=== PATIENT | female | born 1960 | race Caucasian/White ===

== ENCOUNTER 2021-11-05 00:03 | Observation (INO) | payer BC, SELFPAY ==
[2021-11-05 01:37] VITALS: BMI 21.0
[2021-11-05] MEDS ORDERED: Senokot S 8.6-50 MG TAB PO PRN (02:57)
[2021-11-05] MEDS ORDERED: Ondansetron PF 4 MG/2 ML Vial IVP PRN (02:57)
[2021-11-05] MEDS ORDERED: Acetaminophen 325 MG TAB PO PRN (02:57)
[2021-11-05] MEDS ORDERED: Bisacodyl 5 MG TAB PO PRN (02:57)
[2021-11-05] MEDS ORDERED: Sodium Chloride 0.9% 1,000 ML IV SCH (03:00)
[2021-11-05] MEDS ORDERED: Enoxaparin Sodium 40 MG/0.4 ML SYRINGE SC SCH (03:00)
[2021-11-05] MEDS ORDERED: Aspirin Chewable 81 MG TAB PO SCH (03:12)
[2021-11-05] MEDS ORDERED: Nitroglycerin 0.4 MG TAB (25 Tab Bottle) SL PRN (03:13)
[2021-11-05] MEDS ORDERED: Ibuprofen 800 MG TAB PO PRN (03:25)
[2021-11-05] MEDS ORDERED: Lidocaine 2% Viscous Solution 20 ML, Aluminum & Magnesium Hydroxide 30 ML, Donnatal Eli... SSW SCH (03:30)
[2021-11-05 04:35] LABS: #Basophils 0.1 thou/uL (0.0-0.2); #Eosinphils 0.2 thou/uL (0.0-0.7); #Lymphocytes 1.8 thou/uL (1.20-3.40); #Monocytes 0.4 thou/uL (0.11-0.59); #Neutrophils 4.9 thou/uL (1.40-6.50); %Eosinophils 3.1 % (0.0-10.0); %Lymphocytes 24.2 % (21.0-51.0); %Monocytes 5.9 % (0.0-10.0); %Neutrophils 65.9 % (42.0-75.0); Mean Corpuscular HGB CONC 32.8 g/dL (32.0-36.0); Mean Corpuscular Hemoglobin 30.9 pg (27.0-31.0); Mean Corpuscular Volume 94.3 fL (78.0-98.0); Mean Platelet Volume 8.5 fL (7.4-10.4); Platelet Count 265 thou/uL (130-400); RBC Distribution Width 11.5 % (11.5-14.5); Red Blood Cell (RBC) Count 3.87 mill/uL (4.20-5.40); White Blood Cell (WBC) Count 7.5 thou/uL (4.8-10.8)
[2021-11-05 05:00] LABS: Troponin I Less than 0.010 ng/mL (< 0.028)
[2021-11-05 06:29] LABS: ALT (SGPT) 42 U/L (8-55); AST (SGOT) 30 U/L (5-34); Albumin 4.7 g/dL (3.4-4.8); Alkaline Phosphatase 74 U/L (40-110); Anion Gap 15 mmol/L (10-20); BUN (Urea Nitrogen) 10 mg/dL (9.8-20.1); Bilirubin, Total 0.8 mg/dL (0.2-1.2); Calc. Creatinine Clearance 61 mL/min (70-130); Calcium 9.6 mg/dL (7.8-10.44); Carbon Dioxide 25 mmol/L (23-31); Chloride 104 mmol/L (98-107); Globulin 2.6 g/dL (2.4-3.5); Glucose 117 mg/dL (80-115); Potassium 3.3 mmol/L (3.5-5.1); Protein, Total 7.3 g/dL (5.8-8.1); Sodium 141 mmol/L (136-145)
[2021-11-05 06:37] LABS: Troponin I Less than 0.010 ng/mL (< 0.028)
[2021-11-05 11:45] LABS: SARS-CoV-2 PCR by NAA Not Detected (NotDetected)
[2021-11-05 15:32] VITALS: BP 139/75; TEMP 98.5
[2021-11-05] MEDS ORDERED: Potassium Chloride 20 MEQ TAB PO SCH (16:15)
[2021-11-06] MEDS ORDERED: Enoxaparin Sodium 40 MG/0.4 ML SYRINGE SC SCH (09:00)
== END 2021-11-05 18:28 | disposition home or self-care (01) ==
LOC: 2SW 01:33
PROVIDERS: ADMIT Internal Medicine; ATTEND Internal Medicine
DX: R07.9 Chest pain, unspecified (principal); K21.9 Gastro-esophageal reflux disease without esophagitis; E87.6 Hypokalemia; N18.2 Chronic kidney disease, stage 2 (mild); G44.209 Tension-type headache, unspecified, not intractable; I08.8 Other rheumatic multiple valve diseases; Z88.5 Allergy status to narcotic agent; Z20.822 Contact with and (suspected) exposure to COVID-19
CPT/HCPCS: 36415; 78452; 80053; 84484; 85025; 93005; 93010; 93017; 93306; 94760; 96372; A9500; G0378; J1650; J7050; U0003; U0005

== ENCOUNTER 2022-02-25 23:58 | Emergency (ER) | payer OTHER, BC ==
[2022-02-26] MEDS ORDERED: Ondansetron ODT 4 MG TAB ONE (01:05)
[2022-02-26] MEDS ORDERED: Ketorolac Tromethamine 30 MG/ML VIAL ONE (01:57)
== END 2022-02-26 04:35 | disposition home or self-care (01) ==
LOC: ERS 23:58
DX: S09.90XA Unspecified injury of head, initial encounter (principal); S60.222A Contusion of left hand, initial encounter; S40.212A Abrasion of left shoulder, initial encounter; V47.5XXA Car driver injured in collision with fixed or stationary object in traffic accident, initial encounter
CPT/HCPCS: 70450; 71045; 72125; 93005; 96372; J1885; Q0162

== ENCOUNTER 2022-05-16 22:24 | Emergency (ER) | payer BC ==
[2022-05-16] MEDS ORDERED: Ondansetron PF 4 MG/2 ML Vial ONE (22:51)
[2022-05-16 23:49] LABS: Hemoglobin 11.3 g/dL (12.0-16.0); Mean Corpuscular HGB CONC 34.3 g/dL (32.0-36.0); Mean Corpuscular Hemoglobin 31.6 pg (27.0-31.0); Mean Corpuscular Volume 92.3 fl (78.0-98.0); Mean Platelet Volume 8.2 fL (7.4-10.4); Platelet Count 240 10x3/uL (130-400); RBC Distribution Width 11.9 % (11.5-14.5); Red Blood Cell (RBC) Count 3.56 mill/uL (4.20-5.40); White Blood Cell (WBC) Count 9.2 10x3/uL (4.8-10.8)
[2022-05-16 23:57] LABS: ALT (SGPT) 15 U/L (8-55); AST (SGOT) 16 U/L (5-34); Albumin 3.9 g/dL (3.4-4.8); Alkaline Phosphatase 57 U/L (40-110); Anion Gap 14 mmol/L (10-20); BUN (Urea Nitrogen) 9 mg/dL (9.8-20.1); Bilirubin, Total 0.9 mg/dL (0.2-1.2); Calc. Creatinine Clearance 0 mL/min (70-130); Calcium 8.7 mg/dL (7.8-10.44); Carbon Dioxide 26 mmol/L (23-31); Chloride 98 mmol/L (98-107); Estimated GFR 89; Globulin 2.5 g/dL (2.4-3.5); Glucose 105 mg/dL (80-115); Lipase 14 U/L (8-78); Potassium 3.2 mmol/L (3.5-5.1); Protein, Total 6.4 g/dL (5.8-8.1); Sodium 135 mmol/L (136-145)
[2022-05-17 00:13] LABS: Band 34 % (5-11); Eosinophils 1 % (0-10); Lymphocytes 23 % (21-51); MDiff Complete? YES; Monocytes 10 % (0-10); Neutrophil 32 % (42-75)
[2022-05-17] MEDS ORDERED: Dicyclomine 20 MG TAB ONE (00:46)
[2022-05-17] MEDS ORDERED: Haloperidol Lactate 5 MG/ML VIAL ONE (00:53)
[2022-05-17 01:18] LABS: CK (CPK) 133 U/L (29-168); Magnesium 1.7 mg/dL (1.6-2.6)
== END 2022-05-17 03:29 | disposition home or self-care (01) ==
LOC: ERS 22:24
DX: K52.9 Noninfective gastroenteritis and colitis, unspecified (principal); K29.00 Acute gastritis without bleeding
CPT/HCPCS: 36415; 74177; 80053; 82550; 83690; 83735; 85025; 96374; 96375; J1630; J2405

== ENCOUNTER 2022-06-14 18:19 | Emergency (ER) | payer BC ==
[2022-06-14] MEDS ORDERED: Ketorolac Tromethamine 30 MG/ML VIAL ONE (20:46)
== END 2022-06-14 21:31 | disposition home or self-care (01) ==
LOC: ERS 18:19
DX: K04.7 Periapical abscess without sinus (principal)
CPT/HCPCS: 96372; 99283; J1885